=== PATIENT | female | born 1965 | race Caucasian/White ===

== ENCOUNTER 2017-09-20 05:53 | Emergency (ER) | payer OTHER ==
[~2017-09-20] VITALS: Ht 160 cm; Wt 72.0 kg
[~2017-09-20 05:53] MED LIST: DOCU-144 PO; HYDR-3498 PO; IBUP-1542 PO; OMEP20CA16 PO
[2017-09-20 06:00] VITALS: Ht 160 cm; Wt 72.0 kg
[2017-09-20] MEDS ORDERED: CYCLOBENZAPRINE 10 MG TAB PO ONE (07:00)
[2017-09-20] MEDS: IBUPROFEN 600 MG TAB PO ONE ×2 (07:04→07:05)
--- NOTE | 2017-09-20 07:10 | ERD ---
ER Documentation Chief Complaint Chief Complaint lower abd pain radiating to lower back x 1 week, denies N/V HPI Patient is a 52-year-old female who presents with gradual onset, constant, progressive left flank pain radiating to the left lower quadrant for 4 days. She reports that she has had a dull pain in this region for the last month, but that it became worse recently. She states that she has waves lasting 3-4 minutes of more intense pain. She denies fever, vomiting, dysuria, hematuria. She denies vaginal discharge. She denies constipation or diarrhea. She denies weakness, numbness, paresthesias in the legs, but states that the pain radiates to her left leg at times. She saw her PMD earlier this week, but states that no testing was done. ROS All systems reviewed and are negative except as per history of present illness. Medications Home Meds Active Scripts Ibuprofen* (Motrin*) 600 Mg Tab, 600 MG PO Q8, #21 TAB Prov:FRANCK STARR MD 09/20/17 Cyclobenzaprine Hcl* (Cyclobenzaprine Hcl*) 10 Mg Tablet, 10 MG PO TID Y for PAIN LEVEL 6-10, #21 TAB Prov:FRANCK STARR MD 09/20/17 Reported Medications Omeprazole* (Omeprazole*) 20 Mg Capsule.dr, 20 MG PO DAILY 06/16/13 Discontinued Scripts Ibuprofen* (Motrin*) 600 Mg Tab, 600 MG PO Q6, #20 TAB Prov:JAKOB BARBOUR 10/18/15 Docusate Sodium* (Colace*) 100 Mg Capsule, 100 MG PO TID, #30 Prov:JAKOB BARBOUR 10/18/15 Hydrocodone Bit-Acetaminophen* ([place]*) 5-325 Mg Tab, 1 TAB PO Q6 Y for PAIN, # 20 TAB Prov:JAKOB BARBOUR 10/18/15 Allergies Allergies: Coded Allergies: No Known Drug Allergies (Verified Allergy, Unknown, 10/18/15) PMhx/Soc Past medical history: Thyroid nodule, fibroid uterus Past surgical history: Hysterectomy without oophorectomy Social history: Denies tobacco or alcohol History of Surgery: Yes (HYSTERECTOMY) Anesthesia Reaction: No Hx Neurological Disorder: No Hx Cardiac Disorders: No Hx Psychiatric Problems: No Hx Miscellaneous Medical Probl: Yes (right breast mass) Hx Alcohol Use: No Hx Substance Use: No Hx Tobacco Use: No Smoking Status: Never smoker FmHx Noncontributory Physical Exam Vitals Vital Signs Date Time Temp Pulse Resp B/P Pulse Ox O2 Delivery O2 Flow Rate FiO2 09/20/17 10:16 78 18 125/86 98 Room Air 09/20/17 09:08 89 18 160/96 98 Room Air 09/20/17 06:00 97.8 83 20 129/84 96 Physical Exam Const: Alert, in mild discomfort Head: Atraumatic Eyes: Normal ConjunctivaNo pallor, no icterus ENT: Normal External Ears, Nose and Mouth. Mucous membranes moist Neck: Full range of motion..~ No meningismus. Resp: Clear to auscultation bilaterally, No wheezes, no rales Cardio: Regular rate and rhythm, no murmurs Abd: Soft, non distended. Mild tenderness in left lower quadrant only. No guarding, no rebound. Skin: No petechiae or rashes Back: No midline tenderness. Equivocal left CVA tenderness. Low lumbar paraspinal tenderness. No vesicular rash. Hyperesthesia of skin to touch. Pain with ipsilateral straight leg raise. No pain with contralateral straight leg raise. Ext: No cyanosis, or edema Neur: Awake and alert, Cranial nerves II through XII intact bilaterally, strength and sensation full in 4 extremities Psych: Normal Mood and Affect Result Diagram: 09/20/1762409/20/1725 Results 24 hrs Laboratory Tests Test 09/20/17 06:25 09/20/17 06:45 White Blood Count 7.010^3/ul Red Blood Count 4.7010^6/ul Hemoglobin 14.6g/dl Hematocrit 42.8% Mean Corpuscular Volume 91.1fl Mean Corpuscular Hemoglobin 31.1pg Mean Corpuscular Hemoglobin Concent 34.1g/dl Red Cell Distribution Width 12.4% Platelet Count 86019^3/UL Mean Platelet Volume 10.2fl Neutrophils % 64.8% Lymphocytes % 28.2% Monocytes % 4.7% Eosinophils % 1.7% Basophils % 0.3% Nucleated Red Blood Cells % 0.0/100WBC Neutrophils # 4.510^3/ul Lymphocytes # 2.010^3/ul Monocytes # 0.310^3/ul Eosinophils # 0.110^3/ul Basophils # 0.010^3/ul Nucleated Red Blood Cells # 0.010^3/ul Sodium Level 146mmol/L Potassium Level 4.4mmol/L Chloride Level 106mmol/L Carbon Dioxide Level 29mmol/L Anion Gap 15 Blood Urea Nitrogen 18mg/dl Creatinine 0.88mg/dl Glucose Level 107mg/dl Calcium Level 9.5mg/dl Total Bilirubin 0.3mg/dl Direct Bilirubin 0.00mg/dl Indirect Bilirubin 0.3mg/dl Aspartate Amino Transf (AST/SGOT) 32IU/L Alanine Aminotransferase (ALT/SGPT) 46IU/L Alkaline Phosphatase 76IU/L Total Protein 8.9g/dl Albumin 4.7g/dl Globulin 4.20g/dl Albumin/Globulin Ratio 1.11 Lipase 87U/L Urine Color YELLOW Urine Clarity CLEAR Urine pH 5.0 Urine Specific [place] 1.023 Urine Ketones NEGATIVEmg/dL Urine Nitrite NEGATIVEmg/dL Urine Bilirubin NEGATIVEmg/dL Urine Urobilinogen 1+mg/dL Urine Leukocyte Esterase NEGATIVELeu/ul Urine Hemoglobin NEGATIVEmg/dL Urine Glucose NEGATIVEmg/dL Urine Total Protein NEGATIVEmg/dl Beta HCG, Quantitative 3.3mIU/ml Current Medications Medications (Trade) Dose Ordered Sig/Sade Route PRN Reason Start Time Stop Time Status Last Admin Dose Admin Ibuprofen (Motrin) 600 mg ONCE ONCE PO 09/20/17 07:00 09/20/17 07:01 DC Cyclobenzaprine HCl (Flexeril) 10 mg ONCE ONCE PO 09/20/17 07:00 09/20/17 07:01 DC 09/20/17 07:04 Procedures/MDM MDM: Patient is a 52-year-old female who presents with left flank pain radiating to the left lower quadrant. Her exam is somewhat suggestive of a musculoskeletal etiology, but I cannot explain why the patient has left lower quadrant tenderness. CT scan of the abdomen and pelvis is unremarkable. The patient is status post hysterectomy, but has an elevated hCG. She was advised of the need to follow-up with her primary care physician regarding further workup of elevated hCG level. Urinalysis was not suggestive of UTI or passed stone. There is no evidence of shingles on exam. The patient was given Flexeril and Motrin in the ER and reports modest relief. I will give her a prescription for these medications have advised her to follow-up closely with her PMD. Departure Diagnosis: Primary Impression: Flank pain Condition: FRANCK Almazan MD Sep 20, 2017 07:10
--- NOTE | 2017-09-20 09:41 | RADRPT ---
PROCEDURE: CT ABDOMEN AND PELVIS WITHOUT CONTRAST. CLINICAL INDICATION: Left flank pain TECHNIQUE: CT scan of the abdomen and pelvis without contrast was performed on a multidetector hig h-resolution CT scanner. The patient was scanned without intravenous contrast. Coronal and sagittal reformatted images were obtained from the axial source images. Images were reviewed on a high-resol [employer] PACS workstation. The total exam CTDI equals 10.8 mGy and the total exam DLP equals 608.5 mGy- cm. One or more of the following dose reduction techniques were used: Automated exposure control. Adjustment of the mA and/or kV according to patient size. Use of iterative reconstruction technique. COMPARISON: None FINDINGS: CT abdomen: The lung bases are clear. The heart size is within limits. There is no significant pericardial effus ion. Hepatic morphology is within normal limits. No gross contour deforming masses. The gallbladder is wi thin normal limits. No evidence of intrahepatic or extrahepatic biliary dilatation. The spleen and pancreas are within normal limits. Both adrenal glands are within normal limits. Both kidneys are in normal anatomic position. No evidence of obstruction or hydronephrosis. No gross renal/ureteric calculi. The visualized GI tract demonstrate normal caliber loops of small and large bowel. No evidence of devi wel obstruction. The appendix is within normal limits. The unenhanced aorta is unremarkable. No significant retroperitoneal lymphadenopathy. CT pelvis: The bladder is distended. The rectosigmoid colon demonstrates stool. No significant free fluid. No s ignificant pelvic lymphadenopathy. The uterus is not visualized. The visualized osseous structures appear to be within normal limits. IMPRESSION: 1. No gross renal/ureteric calculi. No evidence of obstruction or hydronephrosis. 2. No evidence of acute intra-abdominal/pelvic inflammatory process. No evidence of bowel obstructio n. The appendix is within normal limits. 3. No evidence of free fluid or free air. No gross focal fluid collections. RPTAT: [facility]APP Physician Maninder Date Time Electronically viewed and signed by Physician Maninder on 09/20/2017 09:41 MIGUEL ANGEL/
[2017-09-20] MEDS ORDERED: CYCL-319 PO (10:02)
[2017-09-20] MEDS ORDERED: IBUP-1542 PO (10:02)
[2017-09-20 10:16] VITALS: BP 125/86; PULSE 78; RESP 18
== END 2017-09-20 10:50 | disposition home or self-care (01) ==
LOC: E/R 05:53
DX: R10.32 Left lower quadrant pain (principal); R10.2 Pelvic and perineal pain
CPT/HCPCS: 36415; 74176; 80053; 81003; 83690; 84702; 85025; Z7502; Z7610

== ENCOUNTER 2017-09-25 09:10 | Emergency (ER) | payer OTHER ==
[~2017-09-25] VITALS: Ht 160 cm; Wt 73.5 kg
[~2017-09-25 09:10] MED LIST changes: +CYCL-319 PO; -DOCU-144 PO; -HYDR-3498 PO
[2017-09-25 09:16] VITALS: Ht 160 cm; Wt 73.5 kg
[2017-09-25] MEDS ORDERED: KETOROLAC 60 MG INJ IM STA (10:07)
[2017-09-25] MEDS ORDERED: BUPIVACAINE 0.25% (MPF) 10 ML 10 ML VIAL INJ ONE (10:30)
[2017-09-25 11:07] LABS: ADD UMIC YES; UR ASCORBIC ACID NEGATIVE (NEGATIVE); UR BILIRUBIN (Dip) NEGATIVE (NEGATIVE); UR BLOOD (Dip) NEGATIVE (NEGATIVE); UR CLARITY CLEAR (CLEAR); UR COLOR YELLOW (YELLOW); UR GLUCOSE (Dip) NEGATIVE (NEGATIVE); UR KETONES (Dip) NEGATIVE (NEGATIVE); UR LEUKOCYTE ESTERASE (Dip) TRACE Leu/ul (NEGATIVE); UR NITRITE (Dip) NEGATIVE (NEGATIVE); UR RBC 3 /HPF (0-5); UR SPECIFIC GRAVITY (Dip) 1.006 (1.003-1.030); UR SQUAMOUS EPITHELIAL CELL FEW /HPF (FEW); UR TOTAL PROTEIN (Dip) NEGATIVE (NEGATIVE); UR UROBILINOGEN (Dip) NEGATIVE (NEGATIVE)
--- NOTE | 2017-09-25 12:47 | RADRPT ---
PROCEDURE: US Pelvis CLINICAL INDICATION: Pelvic pain. TECHNIQUE: Sonographic evaluation of the pelvis was performed utilizing both transabdominal and tr ansvaginal technique. Curved array transabdominal transducer technique as well as a high frequency endovaginal probe was utilized. Images were reviewed on the high-resolution PACS workstation. COMPARISON: CT abdomen and pelvis dated 09/20/2017 FINDINGS: The uterus is surgically absent. The right ovary measures 2.0 x 2.2 x 5.8 cm in dimension. The left ovary measures 1.8 x 1.3 x 1.2 c m in dimension. The ovaries are symmetric in size, echogenicity, and morphology. Normal Doppler fl ow is demonstrated to both ovaries. There are no adnexal masses. There is no significant free flui d in the pelvis. IMPRESSION: 1. Status post hysterectomy. 2. Unremarkable appearance of the ovaries. RPTAT: HH .Katerina Reeves MD, MD Date Time Electronically viewed and signed by .Katerina Reeves MD, on 09/25/2017 12:47 .G/
[2017-09-25] MEDS ORDERED: METH1ADH4 TP (13:02)
--- NOTE | 2017-09-25 13:25 | ERD ---
ER Documentation Chief Complaint Chief Complaint back pain x 2 weeks HPI 52-year-old female presented to ED complaining of left lower back pain. Patient stated that she had the pain for last 2 weeks, the pain has gotten much worse last night. She is unable to lay down or sit down comfortably because the pain. The pain radiates to the pelvic region. She describes pain as constant, but with contraction-like waves of intense pain. She was seen here 5 days ago for the same, was given ibuprofen and Flexeril. Patient stated that this medication had not helped. He reports feeling nausea, but no vomiting or diarrhea. Denies fever or chills. Denies dysuria. Denies vaginal discharge. Denies back trauma. Denies heavy lifting or falls. Denies saddle paresthesia. Denies bowel or bladder dysfunction. ROS All systems reviewed and are negative except as per history of present illness. Medications Home Meds Active Scripts Methyl Salicylate/Menth/Camph (Salonpas Large Patch) 1 Each Adh..patch, 1 EACH TP Q12 Y for PAIN, #10 Prov:ARABELLA JIMENES [employer] 09/25/17 Ibuprofen* (Motrin*) 600 Mg Tab, 600 MG PO Q8, #21 TAB Prov:FRANCK STRAR MD 09/20/17 Cyclobenzaprine Hcl* (Cyclobenzaprine Hcl*) 10 Mg Tablet, 10 MG PO TID Y for PAIN LEVEL 6-10, #21 TAB Prov:FRANCK STARR MD 09/20/17 Reported Medications Omeprazole* (Omeprazole*) 20 Mg Capsule.dr, 20 MG PO DAILY 06/16/13 Discontinued Scripts Ibuprofen* (Motrin*) 600 Mg Tab, 600 MG PO Q6, #20 TAB Prov:JAKOB BARBOUR 10/18/15 Docusate Sodium* (Colace*) 100 Mg Capsule, 100 MG PO TID, #30 Prov:JAKOB BARBOUR 10/18/15 Hydrocodone Bit-Acetaminophen* ([place]*) 5-325 Mg Tab, 1 TAB PO Q6 Y for PAIN, # 20 TAB Prov:JAKOB BARBOUR 10/18/15 Allergies Allergies: Coded Allergies: No Known Drug Allergies (Verified Allergy, Unknown, 09/25/17) PMhx/Soc History of Surgery: Yes (HYSTERECTOMY) Anesthesia Reaction: No Hx Neurological Disorder: No Hx Cardiac Disorders: No Hx Psychiatric Problems: No Hx Miscellaneous Medical Probl: Yes (right breast mass) Hx Alcohol Use: No Hx Substance Use: No Hx Tobacco Use: No Smoking Status: Never smoker Physical Exam Vitals Vital Signs Date Time Temp Pulse Resp B/P Pulse Ox O2 Delivery O2 Flow Rate FiO2 09/25/17 09:16 97.6 106 18 132/77 97 Physical Exam General: Well-developed, well-nourished, conscious and coherent. She appeared to be severe pain, only able to stand with support of the wall. Skin: Warm and dry without rash, good texture and turgor Head: Normocephalic without evidence of trauma Eyes: Sclera and conjunctivae normal; pupils equal, round, and reactive to light; extraocular movements are intact Chest: Normal AP diameter. Good expansion without retractions. Nontender. Lungs are clear to auscultate bilaterally with good tidal volume Heart: Regular rate and rhythm. No murmur, rub, or gallops heard Abdomen: Soft and nontender without masses, guarding, or rebound. Bowel sounds are active. No hepatosplenomegaly Back: Without spinal or CVA tenderness. Spasm in the left lumbar region. Pelvis: Diffuse pelvic tenderness Extremities: Full range of motion. Good strength bilaterally. No clubbing, cyanosis, or edema. Peripheral pulses are intact. Sensation intact Neuro: Alert and oriented 4, GCS 15. Cranial nerves grossly intact. Motor and sensory exams nonfocal. Moves all extremities. Speech clear. Gait normal Results 24 hrs Laboratory Tests Test 09/25/17 10:23 Urine Color YELLOW Urine Clarity CLEAR Urine pH 6.0 Urine Specific [place] 1.006 Urine Ketones NEGATIVEmg/dL Urine Nitrite NEGATIVEmg/dL Urine Bilirubin NEGATIVEmg/dL Urine Urobilinogen NEGATIVEmg/dL Urine Leukocyte Esterase TRACELeu/ul Urine Microscopic RBC 3/HPF Urine Microscopic WBC 2/HPF Urine Squamous Epithelial Cells FEW/HPF Urine Hemoglobin NEGATIVEmg/dL Urine Glucose NEGATIVEmg/dL Urine Total Protein NEGATIVEmg/dl Current Medications Medications (Trade) Dose Ordered Sig/Sade Route PRN Reason Start Time Stop Time Status Last Admin Dose Admin Ketorolac Tromethamine (Toradol) 60 mg ONCE STAT IM 09/25/17 10:07 09/25/17 10:09 DC 09/25/17 10:40 Bupivacaine HCl ([place] 0.25% (Mpf) 10 ml) 10 ml ONCE ONCE INJ 09/25/17 10:30 09/25/17 10:31 DC PROCEDURE: US Pelvis CLINICAL INDICATION: Pelvic pain. TECHNIQUE: Sonographic evaluation of the pelvis was performed utilizing both transabdominal and transvaginal technique. Curved array transabdominal transducer technique as well as a high frequency endovaginal probe was utilized. Images were reviewed on the high-resolution PACS workstation. COMPARISON: CT abdomen and pelvis dated 09/20/2017 FINDINGS: The uterus is surgically absent. The right ovary measures 2.0 x 2.2 x 5.8 cm in dimension. The left ovary measures 1.8 x 1.3 x 1.2 cm in dimension. The ovaries are symmetric in size, echogenicity, and morphology. Normal Doppler flow is demonstrated to both ovaries. There are no adnexal masses. There is no significant free fluid in the pelvis. IMPRESSION: 1. Status post hysterectomy. 2. Unremarkable appearance of the ovaries. RPTAT: HH .Katerina Reeves MD, MD Date Time Electronically viewed and signed by .Katerina Reeves MD, MD on 09/25/2017 12 :47 .G/ CC: ARABELLA JIMENES [employer] CLERK Procedures/MDM 52-year-old female presented ED with spasm in the left lumbar region. Procedure note: Trigger point injection Trigger point injection performed by ny. 10 mL of bupivacaine is injected into left lower lumbar region. Total number muscle groups injected: 1. Patient reports improvement of pain after the trigger point injection. She is not able to sit and lie down comfortably. Pelvic ultrasound was obtained. Pelvic ultrasound showed post hysterectomy with normal ovaries bilaterally. Urine dip and urine tests are negative. Review of patient's medical records indicated the patient had received CT abdomen and pelvis from her previous visit [address] was negative. I do not feel repeat CT is indicated. Low suspicion for acute appendicitis, ovarian torsion or ruptured ovarian cyst, ectopic , urolithiasis, pyelonephritis, or acute cystitis. Patient appears well, stable for discharge and outpatient management. Medical decision making shared with patient and family. Education provided to patient and family. Patient and family expressed understanding of the plan. Medications on discharge: Salonpas patch. Follow-up: Primary care provider in 2-3 days or return to ED if worse. Disclaimer: Inadvertent spelling and grammatical errors are likely due to EHR/ dictation software use and do not reflect on the overall quality of patient care. Also, please note that the electronic time recorded on this note does not necessarily reflect the actual time of the patient encounter. Departure Diagnosis: Primary Impression: Back spasm Additional Impression: Pelvic pain Condition: Stable Patient Instructions: Back Safety: Getting Into and Out of Bed, Back Safety: Sleeping Positions, Back Exercises: Lower Back Stretch, Back Spasm, No Trauma Additional Instructions: Llame al doctor MAANA y bella drew CRIS PARA DENTRO DE 2-3 SMITH.Dgale a la secretaria que nosotros le instruimos hacer esta cris.Avise o llame si li condicin se empeora antes de la cris. Regresa aqui si peor o no mejor. ARABELLA JIMENES NP Sep 25, 2017 13:25
== END 2017-09-25 14:01 | disposition home or self-care (01) ==
LOC: FTE 09:10
DX: M62.830 Muscle spasm of back (principal); R10.2 Pelvic and perineal pain
CPT/HCPCS: 20552; 76830; 76856; 81001; 96372; J1885; Z7502; Z7610